=== PATIENT | female | born 1995 | race Caucasian/White ===

== ENCOUNTER 2018-08-12 20:02 | Emergency (ER) | payer MEDICAID ==
[~2018-08-12] VITALS: Ht 170.2 cm; Wt 72.6 kg
[2018-08-12] MEDS ORDERED: NOHOMEMEDICATIONS (20:28)
[2018-08-12 20:55] LABS: HEMATOCRIT 42.5 % (37.0-47.0); HEMOGLOBIN 14.4 gm/dL (12.0-15.0); MCH 29.3 pg (26.0-34.0); MCHC 33.8 g/dL (28.0-37.0); MCV 86.5 fL (80.0-100.0); MPV 7.6 fl. (7.2-11.1); RBC 4.92 mil/uL (4.20-5.00); RDW-CV 14.7 % (10.5-14.5); WBC 6.8 thou/uL (4.0-11.0)
[2018-08-12] MEDS ORDERED: DOXYCYCLINE 10100 MG PO (20:56)
[2018-08-12 21:03] LABS: CALCIUM 8.4 mg/dL (8.5-10.1); CREATININE 0.8 mg/dL (0.6-1.3); POTASSIUM 3.4 mmol/L (3.5-5.1)
[2018-08-12 21:08] LABS: ALBUMIN 3.2 g/dL (3.4-5.0); TOTAL BILIRUBIN 1.2 mg/dL (<0.1-1.0); TOTAL PROTEIN 6.9 g/dL (6.4-8.2)
[2018-08-12 21:09] LABS: ACETAMINOPHEN < 2 ug/mL (10-30); ALCOHOL 49 mg/dL (<10); SALICYLATE < 2.8 mg/dL (2.8-20.0)
[2018-08-12 21:38] VITALS: BP 103/57
== END 2018-08-12 21:42 | disposition home or self-care (01) ==
LOC: M.ERS 20:02
PROVIDERS: Personal Emergency Response Attendant
DX: F10.20 Alcohol dependence, uncomplicated (principal); A53.9 Syphilis, unspecified; F17.210 Nicotine dependence, cigarettes, uncomplicated; Z88.0 Allergy status to penicillin